=== PATIENT | female | born 1965 | race Caucasian/White ===

== ENCOUNTER → 2018-10-22 | Outpatient (CLI) | payer OTHER | LOC: FIMAGING 12:21 | PROVIDERS: ATTEND Orthopaedic Surgery | DX: M79.671 Pain in right foot (principal) ==

== ENCOUNTER → 2018-12-02 | Day surgery (SDC) | payer OTHER ==
[~2018-12-02] MED LIST: ALBUTEROL 3 ML DEYVIAL IH PRN; BUPIVACAINE 0.5% 30 ML SDV ONE; DEXAMETHASONE 4 MG/ML VIAL ONE; LIDOCAINE 1% 2 ML INJ ID PRN; LIDOCAINE 2% 5 ML SDV ONE; LR 1,000 ML IV ONE; MEPERIDINE 25 MG/0.5 ML AMP IVP PRN; MIDAZOLAM 2 MG/2 ML VIAL ONE; NALOXONE HCL 0.4 MG/ML INJ IVP PRN; ONDANSETRON 4 MG/2 ML VIAL ONE; PROMETHAZINE HCL 25 MG/ML INJ IVP PRN; PROPOFOL 200 MG/20 ML VIAL ONE; ROPIVACAINE HCL 150 MG/30 ML INJ ONE; ceFAZolin 2 GM/DEXTROSE 100 ML IV ONE; ePHEDrine SULFATE 25 MG/5 ML SYR ONE; fentaNYL 100 MCG/2 ML INJ IVP PRN; fentaNYL 250 MCG/5 ML INJ ONE
--- NOTE | 2018-12-02 12:32 | PDANEPAE ---
ANE History of Present Illness right foot pain ANE Past Medical History - Cardiovascular History Hx Hypertension: No Hx Arrhythmias: No Hx Chest Pain: No Hx Coronary Artery / Peripheral Vascular Disease: No Hx CHF / Valvular Disease: No Hx Palpitations: No Cardiovascular History Comment: TRICUSPID REGURGE, no stenosis. EF 60% - Pulmonary History Hx COPD: No Hx Asthma/Reactive Airway Disease: Yes Hx Recent Upper Respiratory Infection: No Hx Oxygen in Use at Home: No Hx Sleep Apnea: No Sleep Apnea Screening Result - Last Documented: Negative - Neurologic History Hx Cerebrovascular Accident: No Hx Seizures: No Hx Dementia: No - Endocrine History Hx Diabetes: No Hypothyroid: No Hyperthyroid: No Obesity: mild - Renal History Hx Renal Disorders: No - Liver History Hx Hepatic Disorders: No - Neurological & Psychiatric Hx Hx Neurological and Psychiatric Disorders: No Neurological / Psychiatric History Comment: ANXIETY WITH CLAUSTRAPHOBIA. MIGRAINES - Cancer History Hx Cancer: No - Congenital Disorder History Hx Congenital Disorders: No - GI History GERD: mild Hx Gastrointestinal Disorders: Yes Gastrointestinal History Comment: ACID REFLUX,BARRETTS ESOPHAGUS. GASTRIC BYPASS - Other Health History Other Health History: BOTOX Q3MTHS FOR MIGRAINES. Gnosticism- no blood products, ok with cell saver, EPO - Chronic Pain History Chronic Pain: Yes (LOWER BACK) - Surgical History Prior Surgeries: LTKA 2017. CERVICAL FUSION C4,5,6 2013 &2015. LUMBAR FUSION 2016 L4/5. GASTRIC [id number] ANE Review of Systems Review of systems is: negative Review of Systems: - Exercise capacity METS (RN): 4 METS ANE Patient History - Allergies Allergies/Adverse Reactions: Penicillins Allergy (Verified 11/25/18 13:00) Other-Enter Comments - Home Medications Home medications: home medication list seen and reviewed Home Medications: Albuterol 11/25/18 [Last Taken Unknown] Breo Ellipta 100-25 Mcg INH 11/25/18 [Last Taken Unknown] Compazine 5mg (*) 11/25/18 [Last Taken Unknown] Melatonin 11/25/18 [Last Taken Unknown] Multivitamin 11/25/18 [Last Taken Unknown] Omeprazole 11/25/18 [Last Taken Unknown] Ranitidine HCl 11/25/18 [Last Taken Unknown] Zyrtec 11/25/18 [Last Taken Unknown] - NPO status NPO Status: no food or drink >8 hours NPO Since - Liquids (Date): 12/02/18 NPO Since - Liquids (Time): 07:30 NPO Since - Solids (Date): 12/01/18 NPO Since - Solids (Time): 19:30 - Anes Hx Anes Hx: no prior problems - Smoking Hx Smoking Status: Former smoker - Alcohol Use Alcohol Use: Rarely - Family Anes Hx Family Anes Hx: none Family Hx Anesthesia Complications: sister gets nauseated ANE Labs/Vital Signs - Vital Signs Blood Pressure: 133/81 Heart Rate: 78 Respiratory Rate: 18 O2 Sat (%): 93 Height: 160.02 cm Weight: 90.718 kg ANE Physical Exam - Airway Neck exam: FROM Mallampati Score: Class 2 Mouth exam: normal dental/mouth exam - Pulmonary Pulmonary: no respiratory distress, clear to auscultation - Cardiovascular Cardiovascular: regular rate and rhythym, no murmur, rub, or gallop - ASA Status ASA Status: II ANE Anesthesia Plan Anesthesia Plan: GA w LMA Regional Anesthesia: adductor canal FNB, popliteal SNB
--- NOTE | 2018-12-02 14:01 | PDHPUP ---
History & Physical Update H&P update statement: This history and physical update is based on an assessment of the patient which was completed after admission or registration (within 24 hours), but prior to the surgery/procedure. H&P update: H&P reviewed & patient examined, no change in patient's condition since H&P completed
--- NOTE | 2018-12-02 15:54 | POSTOPPROG ---
Post Op Note Date of Operation: 12/02/18 Surgeon: Yandel Talley Resource Recovery Engineer: Gibson Anesthesiologist: Nereyda Anesthesia: GET(General Endotracheal) Pre-op Diagnosis: metatarsal Post-op Diagnosis: same Indication: above Procedure: Angie, 2-3 smo, hwr, barbara Inf/Abcess present in the surg proc area at time of surgery?: No EBL: Minimal
--- NOTE | 2018-12-02 16:09 | POSTANESTH ---
Post Anesthetic Evaluation Cardiovascular Status: Normal, Stable Respiratory Status: Normal, Stable Level of Consciousness/Mental Status: Can Participate in Eval Pain Control: Adequate, Prn Tx Ordered Nausea/Vomiting Control: Adequate, Prn Tx Ordered Complications Possibly Related to Anesthesia: None Noted
--- NOTE | 2018-12-02 16:29 | GOP ---
DATE OF OPERATION: 12/02/2018 SURGEON: Yandel Talley MD SKI PATROL DIRECTOR: Fabricio Arreaga SA ANESTHESIA: General with supplemental popliteal and saphenous block for postop pain control. PREOPERATIVE DIAGNOSIS: Right foot metatarsalgia. POSTOPERATIVE DIAGNOSIS: Right foot metatarsalgia. PROCEDURE PERFORMED: 1. Right Angie gastroc recession. 2. Right hardware removal, mid foot. 3. Right Cotton osteotomy, mid foot. 4. Right 2 and 3 shortening metatarsal osteotomies. FINDINGS: SPECIMENS: None. ESTIMATED BLOOD LOSS: 10 mL. INDICATIONS: This is a female had a previous bunion surgery and a Lapidus. She presented with signi ficant metatarsalgia. Her 2nd and 3rd rays were significantly longer than her 1st. She also had mary kay siflexion of the 1st ray and tight gastroc all contributing to her metatarsalgia. I counseled her on the risks and benefits of the above operative intervention. She elected to proceed. We discussed r isks of continued pain, nonunion, malunion, need for further hardware, inability to remove the hardwa re, nerve injury, infection, stiffness, and she elected to proceed. Informed consent given, all ques tions were answered. She was marked preoperatively. DESCRIPTION OF PROCEDURE: She was taken to the operative suite, sterilely prepped and draped in norm al fashion. Time-out was performed verifying the site, side, location and agreed on by all members o f the team. We began by using an Esmarch, inflating the tourniquet. I made an incision over the med ial gastroc and exposed this. Cut the outer portion of the gastroc myotendinous junction while my as sistant held dorsiflexion obtained more dorsiflexion. I then made an incision over the 2nd 3rd metat arsal webspace and dissected the metatarsal heads out. I then performed shortening metatarsal osteot omies with a saw blade in oblique fashion, shortened these, removed excess bone, held these and place d snap-off screws to hold them in place and checked these fluoroscopically. I then exposed the previ ous plate, isolated this, removed the plate. Then removed scar tissue. I exposed the medial cuneifo rm, put a pin in this, liked my spot, made the osteotomy leaving the plantar cortex intact. I hinged this open with distractors and then placed the bone wedge in place. Then upon releasing distraction , the bone wedge held snugly in place and did not feel supplemental hardware was necessary. I checke d this all fluoroscopically and clinically and liked the position and correction. She was then irrig ated and closed with 0 Vicryl, 2-0 Vicryl, 3-0 Vicryl, Quill and Dermabond and Monocryl and taken to PACU in stable condition. COMPLICATIONS: None. DRAINS: None. CONDITION: Stable. /[id number]/MODL
[2018-12-02 18:21] VITALS: BP 121/82
== END | disposition home or self-care (01) ==
LOC: FSGY 11:44
PROVIDERS: ATTEND Orthopaedic Surgery
PROC: 0LSN0ZZ Reposition Right Lower Leg Tendon, Open Approach (ICD-10-PCS; principal; 2018-12-02 13:30)
PROC: 0QQ Lower Bones, Repair (ICD-10-PCS; principal; 2018-12-02 13:30)
PROC: 0QQN0ZZ Repair Right Metatarsal, Open Approach (ICD-10-PCS; principal; 2018-12-02 13:30)
DX: M77.41 Metatarsalgia, right foot (principal)
CPT/HCPCS: C1713; C1762; J0690; J1100; J2250; J2405; J2704; J2795; J3010

== ENCOUNTER → 2019-01-02 | Outpatient (CLI) | payer OTHER | LOC: FIMAGING 10:31 | PROVIDERS: ATTEND Orthopaedic Surgery | DX: R60.0 Localized edema (principal); Z98.890 Other specified postprocedural states ==